=== PATIENT | male | born 1970 | race Caucasian/White ===

== ENCOUNTER 2018-09-01 08:39 | Emergency (ER) | payer BC ==
[~2018-09-01] VITALS: Ht 177.8 cm; Wt 80.7 kg
[2018-09-01 08:43] VITALS: Ht 177.8 cm; Wt 80.7 kg
[2018-09-01 09:45] LABS: CALCIUM 9.9 mg/dL (8.5-10.1); CARBON DIOXIDE 24.3 mmol/L (21-32); CHLORIDE SERUM 104 mmol/L (98-107); CREATININE SERUM 1.2 mg/dL (0.7-1.3); GFR1 > 60 mL/min; GLUCOSE SERUM 162 mg/dL (74-106); POTASSIUM SERUM 3.7 mmol/L (3.5-5.1); SODIUM SERUM 142 mmol/L (136-145)
[2018-09-01 09:49] LABS: ALBUMIN 4.3 g/dL (3.4-5.0); ALKALINE PHOSPHATASE 86 U/L (46-116); ALT/SGPT 27 U/L (16-63); AST/SGOT 13 U/L (15-37); BILIRUBIN TOTAL 0.72 mg/dL (0.20-1.00); TOTAL PROTEIN, SERUM 7.5 g/dL (6.4-8.2)
[2018-09-01 10:17] LABS: BASOPHIL % 0.2 % (0-2); PLATELET COUNT 160 x10^3mcL (130-400); RED CELL DISTRIBUTION WIDTH 13.5 % (11.5-14.5)
[2018-09-01 10:54] VITALS: BP 110/70
== END 2018-09-01 11:12 | disposition home or self-care (01) ==
LOC: ED 08:39
PROVIDERS: Emergency Medicine
DX: R10.32 Left lower quadrant pain (principal); N40.0 Benign prostatic hyperplasia without lower urinary tract symptoms; R19.7 Diarrhea, unspecified
CPT/HCPCS: J1885; J2405; J7030

== ENCOUNTER 2018-09-02 12:02 | Emergency (ER) | payer BC ==
[~2018-09-02] VITALS: Ht 177.8 cm; Wt 79.4 kg
[2018-09-02 12:10] VITALS: Ht 177.8 cm; Wt 79.4 kg
[2018-09-02 12:48] LABS: PLATELET COUNT 164 x10^3mcL (130-400); RED CELL DISTRIBUTION WIDTH 13.2 % (11.5-14.5)
[2018-09-02 13:02] LABS: CALCIUM 9.4 mg/dL (8.5-10.1); CARBON DIOXIDE 20.7 mmol/L (21-32); CHLORIDE SERUM 107 mmol/L (98-107); CREATININE SERUM 1.3 mg/dL (0.7-1.3); GFR1 > 60 mL/min; GLUCOSE SERUM 110 mg/dL (74-106); POTASSIUM SERUM 3.5 mmol/L (3.5-5.1); SODIUM SERUM 143 mmol/L (136-145)
[2018-09-02 13:07] LABS: ALBUMIN 4.2 g/dL (3.4-5.0); ALKALINE PHOSPHATASE 85 U/L (46-116); ALT/SGPT 28 U/L (16-63); AST/SGOT 15 U/L (15-37); BILIRUBIN TOTAL 0.63 mg/dL (0.20-1.00); TOTAL PROTEIN, SERUM 7.3 g/dL (6.4-8.2)
[2018-09-02 13:30] VITALS: BP 150/70
== END 2018-09-02 13:30 | disposition home or self-care (01) ==
LOC: ED 12:02
PROVIDERS: Emergency Medicine
DX: N23 Unspecified renal colic (principal); Z87.442 Personal history of urinary calculi
CPT/HCPCS: J1885; J7030

== ENCOUNTER 2020-04-06 15:54 | Emergency (ER) | payer BC ==
[~2020-04-06] VITALS: Ht 177.8 cm; Wt 80.7 kg
[2020-04-06 16:11] VITALS: Ht 177.8 cm; Wt 80.7 kg
[2020-04-06 17:48] LABS: UA SPECIFIC GRAVITY >=1.030 (1.005-1.035); microscopic required? YES; urine erythrocyte 3+ (NEGATIVE)
[2020-04-06 18:42] VITALS: BP 132/83
== END 2020-04-06 18:42 | disposition home or self-care (01) ==
LOC: ED 15:54
PROVIDERS: Emergency Medicine
DX: N20.0 Calculus of kidney (principal); Z87.442 Personal history of urinary calculi
CPT/HCPCS: J1885